=== PATIENT | male | born 2000 | race Caucasian/White ===

== ENCOUNTER 2020-06-29 18:16 | Emergency (ER) | payer MEDICAID ==
[~2020-06-29] VITALS: Ht 182.9 cm; Wt 81.8 kg
--- NOTE | 2020-06-29 18:31 | NUR ---
LUCILLE MOM [phone]. ANY QUESTIONS CALL HER
--- NOTE | 2020-06-29 18:47 | NUR ---
IN TRIAGE HE STARTED TO EXHIBIT SIGNS OF A PANIK ATTACK WITH INCREASED MOVEMENT OF ARMS/LEGS AND HYPERVENTILATION. INSTRUCTED HIM THAT HE IS FINE, AND THAT THE 'FEELING SLEEPY' PROBABLY HAS MORE TO DO WITH THE 5 BEERS MORE THAN ANYTHING SINCE HE DIDN'T HIT HIS HEAD OR HAVE ANY LOC. HE THEN STOPPED EXHIBITING THOSE SIGNS. HE WALKED TO ROOM 3.
[2020-06-29] MEDS ORDERED: HYDROcodone/acetaminophen 10/325mg tab PO ONE (18:55)
[2020-06-29 20:12] VITALS: BP 118/84
== END 2020-06-29 20:13 | disposition home or self-care (01) ==
LOC: ER 18:17
DX: S80.01XA Contusion of right knee, initial encounter (principal); S50.01XA Contusion of right elbow, initial encounter; M25.521 Pain in right elbow; M25.561 Pain in right knee; Z72.89 Other problems related to lifestyle; W18.39XA Other fall on same level, initial encounter; Y93.89 Activity, other specified; Y92.89 Other specified places as the place of occurrence of the external cause; Y99.8 Other external cause status
CPT/HCPCS: 73080; 73564; 99284

== ENCOUNTER 2020-11-13 21:10 | Emergency (ER) | payer MEDICAID ==
[~2020-11-13] VITALS: Ht 182.9 cm; Wt 104.5 kg
[2020-11-13 21:21] VITALS: BP 137/68
[2020-11-13] MEDS ORDERED: LIDOcaine 1% W/epiNEPHrine 1:200,000 10ml vial IJ ONE (21:50)
[2020-11-13] MEDS ORDERED: TETanus/Pertussis (Acell)/Diphther VAC/PF (Tdap-Adult) 0.5ml syringe IMVAC ONE (21:50)
== END 2020-11-13 22:55 | disposition home or self-care (01) ==
LOC: ER 21:11
DX: S61.011A Laceration without foreign body of right thumb without damage to nail, initial encounter (principal); Z88.0 Allergy status to penicillin; Z72.89 Other problems related to lifestyle; W26.0XXA Contact with knife, initial encounter; Y93.89 Activity, other specified; Y92.89 Other specified places as the place of occurrence of the external cause; Y99.8 Other external cause status
CPT/HCPCS: 12001; 90471; 90715; 99283